=== PATIENT | male | born 1995 ===

== ENCOUNTER 2016-12-23 18:22 | Emergency (ER) | payer SELFPAY ==
[2016-12-23 18:29] VITALS: BMI 20.3
[2016-12-23 18:33] VITALS: RESP 18
--- NOTE | 2016-12-23 18:47 | ED PDOC ---
Arrival/HPI - General Chief Complaint: Cough, Cold, Congestion Time Seen by Provider: 12/23/16 18:43 Historian: Patient - History of Present Illness Narrative History of Present Illness (Text): 12/23/16 18:43 A 21 year old male with no significant past medical history, presents to the emergency department with 3 week duration of an unproductive cough. He reports associated chest pain when coughing. 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 He denies denies fevers, chills, headache, dizziness, shortness of breath, dyspnea on exertion, abdominal pain, nausea, vomiting, diarrhea, back pain, neck pain, urinary/bowel changes, or any other complaint. Time/Duration: Other (3 weeks.) Symptom Onset: Sudden Symptom Course: Unchanged Activities at Onset: Rest, Light Context: Home, Work Past Medical History - Provider Review Nursing Documentation Reviewed: Yes - Infectious Disease Hx of Infectious Diseases: None - Psychiatric Hx Substance Use: No - Surgical History Hx Appendectomy: Yes - Anesthesia Hx Anesthesia: Yes Hx Anesthesia Reactions: No Hx Malignant Hyperthermia: No Family/Social History - Physician Review Nursing Documentation Reviewed: Yes Family/Social History: No Known Family HX Smoking Status: Never Smoked Hx Alcohol Use: No Hx Substance Use: No Allergies/Home Meds Allergies/Adverse Reactions: Allergies No Known Allergies Allergy (Verified 12/23/16 18:29) Review of Systems - Physician Review All systems were reviewed & negative as marked: Yes - Review of Systems Constitutional: absent: Fevers, Night Sweats Respiratory: Cough. absent: SOB Cardiovascular: Chest Pain. absent: FRANCOIS Gastrointestinal: absent: Abdominal Pain, Diarrhea, Nausea, Vomiting Genitourinary Male: absent: Urinary Output Changes Musculoskeletal: absent: Back Pain, Neck Pain Neurological: absent: Headache, Dizziness Physical Exam - Physical Exam Narrative Physical Exam (Text): 12/23/16 18:51 Constitutional: No acute distress. Head: Normocephalic. Atraumatic. Eyes: PERRL. ENT: Moist mucous membranes. Neck: Supple. Cardiovascular: Regular rate. Chest: Reproducible chest pain with pectoral muscle use. Reproducible tenderness. Respiratory: Clear to auscultation bilaterally. GI: Soft. Nontender. Nondistended. Back: No CVA tenderness. Musculoskeletal: No tenderness or swelling of extremities. Skin: No rash. Neurologic: Alert, no focal deficit. Vital Signs Reviewed: Yes Vital Signs Temp Pulse Resp BP Pulse Ox 12/23/16 20:22 98.5 F 88 18 115/65 99 12/23/16 18:32 98.1 F 87 18 110/66 96 Temperature: Afebrile Blood Pressure: Normal Pulse: Regular Respiratory Rate: Normal Appearance: Positive for: Well-Appearing, Non-Toxic, Comfortable Pain Distress: None Mental Status: Positive for: Alert and Oriented X 3 Medical Decision Making ED Course and Treatment: 12/23/16 18:53 Impression: A 21 year old male presents with 3-week duration unproductive cough and chest pain. Plan: --Chest X-ray -- Toradol -- Reassess and disposition Progress Notes: CXR no consolidation or infiltrate. - RAD Interpretation Radiology Orders: 12/23/16 18:43 CHEST TWO VIEWS (PA/LAT) [RAD] Stat - Medication Orders Current Medication Orders: Discontinued Medications Ketorolac Tromethamine (Toradol) 60 mg IM STAT STA Stop: 12/23/16 18:44 Last Admin: 12/23/16 18:56 Dose: 60 mg MAR Pain Assessment Document 12/23/16 18:56 IT (Rec: 12/23/16 18:56 IT [id number]) Pain Reassessment Is this a pain reassessment? No Sleep Is patient sleeping during reassessment? No Presence of Pain Presence of Pain Yes Pain Scale Used Pain Scale Used Numeric Location Pain Location Body Site Throat Description Description Intermittent IM Administration Charges Document 12/23/16 18:56 IT (Rec: 12/23/16 18:56 IT [id number]) Injection Site MAR Injection Site Left Deltoid Charges for Administration # of IM Administrations 1 - Scribe Statement The provider has reviewed the documentation as recorded by the Alejandra Antony Provider Scribe Attestation: All medical record entries made by the Scribe were at my direction and personally dictated by me. I have reviewed the chart and agree that the record accurately reflects my personal performance of the history, physical exam, medical decision making, and the department course for this patient. I have also personally directed, reviewed, and agree with the discharge instructions and disposition. Disposition/Present on Arrival - Present on Arrival Any Indicators Present on Arrival: No History of DVT/PE: No History of Uncontrolled Diabetes: No Urinary Catheter: No History of Decub. Ulcer: No History Surgical Site Infection Following: None - Disposition Have Diagnosis and Disposition been Completed?: Yes Diagnosis: Cough Disposition: HOME/ ROUTINE Disposition Time: 20:13 Patient Plan: Discharge Condition: STABLE Discharge Instructions (ExitCare): Acute Cough (ED) Prescriptions: Ibuprofen [Motrin] 1 tab PO Q6 #30 tab Referrals: [facility] at [facility] [place] [Outside] - Follow up with primary Forms: [employer] ([place])
[2016-12-23 20:25] VITALS: BP 115/65; PULSE 88; TEMP 98.5; O2SAT 99
== END 2016-12-23 20:25 | disposition home or self-care (01) ==
LOC: ED 18:22
DX: R05 Cough (principal)
CPT/HCPCS: 71020; 96372; 99282; J1885